=== PATIENT | female | born 2000 | race Caucasian/White ===

== ENCOUNTER 2023-07-31 14:47 | Outpatient (CLI) | payer BC, SELFPAY ==
[2023-07-31 15:36] LABS: Beta HCG Quantitative < 2.39 mIU/ML
== END 2023-07-31 14:48 | disposition home or self-care (01) ==
PROVIDERS: PCP Pediatrics; Visit Provider Advanced Practice Midwife
DX: N91.2 Amenorrhea, unspecified (principal)
CPT/HCPCS: 36415; 84702